=== PATIENT | male | born 1945 | race Caucasian/White ===

== ENCOUNTER 2016-07-29 17:55 | Observation (INO) | payer OTHER, MEDICARE ==
[~2016-07-29 17:55] MED LIST: ASPI81CH CHEW; CYCL1TAB29 PO; IBUP800T23 PO; LISI20TA PO; NORC5TAB PO; PROT40TA PO; SIMV40TA PO; ZETI10TA5 PO
[2016-07-29 17:59] VITALS: BP 156/70; PULSE 99; RESP 20; TEMP 98.4; O2SAT 95
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
[2016-07-29] MEDS ORDERED: KETOROLAC TROMETHAMINE 60 MG/2 ML (IM) VIAL IM ONE (18:30)
[2016-07-29] MEDS ORDERED: ORPHENADRINE INJ 60 MG/2 ML AMP IM ONE (18:30)
[2016-07-29] MEDS ORDERED: HYDROmorphone HCL PF 2 MG/ML VIAL IV PUSH ONE (19:30)
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
[2016-07-29 20:20] VITALS: BP 156/78; PULSE 95; RESP 14; O2SAT 95
[2016-07-29] MEDS ORDERED: ONDANSETRON HCL 4 MG/2 ML VIAL IVP PRN (21:15)
[2016-07-29] MEDS ORDERED: SODIUM CHLORIDE 0.9% FLUSH 5 ML FLUSH FLUSH PRN (21:15)
[2016-07-29] MEDS ORDERED: NALOXONE HCL 0.4 MG/ML AMP IV PRN (21:15)
[2016-07-29] MEDS ORDERED: ENALAPRILAT 2.5 MG/2 ML VIAL IV PUSH PRN (21:15)
[2016-07-29 21:55] VITALS: RESP 14; O2SAT 95
[2016-07-30] VITALS (8 sets, daily range): BP systolic 108–156; BP diastolic 64–80; PULSE 78–105; RESP 15–19; TEMP 97.1–98.2; O2SAT 93–97
[2016-07-30] MEDS: HYDROmorphone HCL PF 1 MG/ML VIAL IV PUSH PRN ×2 (01:01→08:47)
[2016-07-30 06:19] LABS: AUTOMATED NEUTROPHIL # 6.1 TH/MM3 (1.8-7.7); BASOPHIL % 0.4 % (0.0-2.0); EOSINOPHIL # 0.4 TH/MM3 (0-0.4); EOSINOPHIL % 3.8 % (0.0-4.0); HEMATOCRIT 35.7 % (39.0-51.0); HEMO FLAGS DIFF FINAL; LYMPH % 18.6 % (9.0-44.0); LYMPHOCYTE # 1.7 TH/MM3 (1.0-4.8); MEAN CELL VOLUME 90.3 FL (80.0-100.0); MEAN CORPUSCULAR HEMOGLOBIN 30.1 PG (27.0-34.0); MEAN CORPUSCULAR HGB CONC 33.3 % (32.0-36.0); MONO % 11.1 % (0.0-8.0); NEUT % 66.1 % (16.0-70.0); PLATELET COUNT 144 TH/MM3 (150-450); RED BLOOD COUNT 3.95 MIL/MM3 (4.50-5.90); RED CELL DISTRIBUTION WIDTH 14.8 % (11.6-17.2); WHITE BLOOD COUNT 9.2 TH/MM3 (4.0-11.0)
[2016-07-30 06:27] LABS: POTASSIUM 4.2 MEQ/L (3.5-5.1)
[2016-07-30] MEDS: SODIUM CHLORIDE 0.9% FLUSH 5 ML FLUSH FLUSH SCH ×2 (08:48→20:52)
[2016-07-30] MEDS: PANTOPRAZOLE SOD 40 MG DELAYED RELEASE TAB PO SCH (08:48)
[2016-07-30] MEDS: ENOXAPARIN SODIUM 40 MG/0.4 ML SYRINGE SQ SCH (08:48)
[2016-07-30] MEDS ORDERED: oxyCODONE/ACETAMINOPHEN 10 MG/325 MG TAB PO PRN (10:15)
[2016-07-30] MEDS ORDERED: oxyCODONE/ACETAMINOPHEN 5 MG/325 MG TAB PO PRN (10:15)
[2016-07-30] MEDS: DOCUSATE SODIUM 50 MG/SENNA 8.6 MG TAB PO SCH ×2 (11:07→20:51)
[2016-07-30] MEDS ORDERED: KETOROLAC TROMETHAMINE 60 MG/2 ML (IM) VIAL IM PRN (12:45)
[2016-07-30] MEDS ORDERED: NON-FORMULARY DRUG (Lisinopril-Hctz 1 TAB) PO SCH (12:45)
[2016-07-30] MEDS ORDERED: PANTOPRAZOLE SOD 40 MG DELAYED RELEASE TAB PO SCH (12:45)
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
[2016-07-30] MEDS: ACETAMINOPHEN 1000 MG/100 ML VIAL IV SCH ×2 (15:10→18:30)
[2016-07-30] MEDS: EZETIMIBE 10 MG TAB PO SCH (15:11)
[2016-07-30] MEDS: HYDROCHLOROTHIAZIDE 25 MG TAB PO SCH (15:11)
[2016-07-30] MEDS: CYCLOBENZAPRINE HCL 10 MG TAB PO SCH ×2 (15:12→18:30)
[2016-07-30] MEDS: LISINOPRIL 20 MG TAB PO SCH (15:12)
[2016-07-30] MEDS: ASPIRIN 81 MG CHEW TAB CHEW SCH (15:12)
[2016-07-30] MEDS: LIDOCAINE HCL 5% PATCH TD SCH (15:14)
[2016-07-30] MEDS: PRAVASTATIN SOD 80 MG TAB PO SCH (20:51)
[2016-07-30] MEDS: REMOVE OLD PATCH TD SCH (21:00)
[2016-07-31] VITALS: BP 123/50; PULSE 94; RESP 18; TEMP 97; O2SAT 94
[2016-07-31] MEDS: ACETAMINOPHEN 1000 MG/100 ML VIAL IV SCH ×3 (00:46→11:41)
[2016-07-31 08:00] VITALS: BP 153/74; PULSE 79; RESP 19; TEMP 97.4; O2SAT 96
[2016-07-31] MEDS: DOCUSATE SODIUM 50 MG/SENNA 8.6 MG TAB PO SCH ×2 (08:20→21:23)
[2016-07-31] MEDS: PANTOPRAZOLE SOD 40 MG DELAYED RELEASE TAB PO SCH (08:20)
[2016-07-31] MEDS: ASPIRIN 81 MG CHEW TAB CHEW SCH (08:20)
[2016-07-31] MEDS: CYCLOBENZAPRINE HCL 10 MG TAB PO SCH ×3 (08:21→17:04)
[2016-07-31] MEDS: LISINOPRIL 20 MG TAB PO SCH (08:21)
[2016-07-31] MEDS: HYDROCHLOROTHIAZIDE 25 MG TAB PO SCH (08:22)
[2016-07-31] MEDS: EZETIMIBE 10 MG TAB PO SCH (08:22)
[2016-07-31] MEDS: SODIUM CHLORIDE 0.9% FLUSH 5 ML FLUSH FLUSH SCH ×2 (08:23→21:23)
[2016-07-31] MEDS: ENOXAPARIN SODIUM 40 MG/0.4 ML SYRINGE SQ SCH (08:23)
[2016-07-31] MEDS: LIDOCAINE HCL 5% PATCH TD SCH (08:23)
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
[2016-07-31 12:00] VITALS: BP 139/90; PULSE 81; RESP 20; TEMP 97.7; O2SAT 95
[2016-07-31 16:00] VITALS: BP 125/75; PULSE 88; RESP 18; TEMP 97.5; O2SAT 93
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
[2016-07-31] MEDS: ACETAMINOPHEN 325 MG TAB PO SCH (17:04)
[2016-07-31 20:00] VITALS: BP 119/77; PULSE 72; RESP 20; TEMP 98.5; O2SAT 92
[2016-07-31] MEDS: REMOVE OLD PATCH TD SCH (21:00)
[2016-07-31] MEDS: PRAVASTATIN SOD 80 MG TAB PO SCH (21:23)
[2016-08-01] VITALS: BP 122/80; PULSE 76; RESP 20; TEMP 95.4; O2SAT 90
[2016-08-01] MEDS: ACETAMINOPHEN 325 MG TAB PO SCH ×4 (00:04→17:10)
[2016-08-01 04:00] VITALS: BP 128/76; PULSE 77; RESP 16; TEMP 98.2; O2SAT 93
[2016-08-01 09:06] VITALS: BP 129/84; PULSE 79; RESP 16; TEMP 96.7; O2SAT 95
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
[2016-08-01] MEDS: HYDROCHLOROTHIAZIDE 25 MG TAB PO SCH (09:55)
[2016-08-01] MEDS: LISINOPRIL 20 MG TAB PO SCH (09:55)
[2016-08-01] MEDS: ASPIRIN 81 MG CHEW TAB CHEW SCH (09:55)
[2016-08-01] MEDS: PANTOPRAZOLE SOD 40 MG DELAYED RELEASE TAB PO SCH (09:55)
[2016-08-01] MEDS: CYCLOBENZAPRINE HCL 10 MG TAB PO SCH ×3 (09:55→17:09)
[2016-08-01] MEDS: EZETIMIBE 10 MG TAB PO SCH (09:55)
[2016-08-01] MEDS: LIDOCAINE HCL 5% PATCH TD SCH (09:56)
[2016-08-01] MEDS: ENOXAPARIN SODIUM 40 MG/0.4 ML SYRINGE SQ SCH (09:56)
[2016-08-01] MEDS: DOCUSATE SODIUM 50 MG/SENNA 8.6 MG TAB PO SCH ×2 (09:56→19:48)
[2016-08-01] MEDS: POLYETHYLENE GLYCOL 17 GM PKG PO PRN (10:03)
[2016-08-01] MEDS: SODIUM CHLORIDE 0.9% FLUSH 5 ML FLUSH FLUSH SCH ×2 (10:07→19:50)
[2016-08-01 14:08] VITALS: BP 147/81; PULSE 98; RESP 18; TEMP 96.4; O2SAT 96
[2016-08-01] MEDS: KETOROLAC TROMETHAMINE 30 MG/ML (IVP) VIAL IV PUSH PRN (17:09)
[2016-08-01 17:21] VITALS: BP 132/74; PULSE 109; RESP 16; TEMP 96.8; O2SAT 94
[2016-08-01] MEDS: PRAVASTATIN SOD 80 MG TAB PO SCH (19:48)
[2016-08-01 20:00] VITALS: BP 132/81; PULSE 72; RESP 20; TEMP 96.3; O2SAT 94
[2016-08-01] MEDS: REMOVE OLD PATCH TD SCH (21:00)
[2016-08-02] VITALS: BP 112/69; PULSE 78; RESP 20; TEMP 96.1; O2SAT 96
[2016-08-02] MEDS: ACETAMINOPHEN 325 MG TAB PO SCH ×4 (00:13→18:43)
[2016-08-02 04:00] VITALS: BP 115/73; PULSE 77; RESP 20; TEMP 96.2; O2SAT 92
[2016-08-02 08:00] VITALS: BP 111/61; PULSE 85; RESP 16; TEMP 98; O2SAT 95
[2016-08-02] MEDS: ENOXAPARIN SODIUM 40 MG/0.4 ML SYRINGE SQ SCH (09:00)
[2016-08-02] MEDS: LIDOCAINE HCL 5% PATCH TD SCH (09:00)
[2016-08-02] MEDS: PANTOPRAZOLE SOD 40 MG DELAYED RELEASE TAB PO SCH (09:00)
[2016-08-02] MEDS: ASPIRIN 81 MG CHEW TAB CHEW SCH (09:00)
[2016-08-02] MEDS: SODIUM CHLORIDE 0.9% FLUSH 5 ML FLUSH FLUSH SCH ×2 (09:00→19:41)
[2016-08-02] MEDS: EZETIMIBE 10 MG TAB PO SCH (09:00)
[2016-08-02] MEDS: DOCUSATE SODIUM 50 MG/SENNA 8.6 MG TAB PO SCH ×2 (09:00→19:40)
[2016-08-02] MEDS: CYCLOBENZAPRINE HCL 10 MG TAB PO SCH ×3 (09:00→18:43)
[2016-08-02] MEDS: LISINOPRIL 20 MG TAB PO SCH (09:00)
[2016-08-02] MEDS: HYDROCHLOROTHIAZIDE 25 MG TAB PO SCH (09:00)
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
[2016-08-02 12:00] VITALS: BP 110/60; PULSE 82; RESP 18; TEMP 98; O2SAT 95
[2016-08-02] MEDS ORDERED: BISACODYL 10 MG SUPP RECTAL PRN (15:45)
[2016-08-02 16:00] VITALS: BP 118/65; PULSE 86; RESP 16; TEMP 98.1; O2SAT 95
[2016-08-02] MEDS: PRAVASTATIN SOD 80 MG TAB PO SCH (19:40)
[2016-08-02] MEDS: KETOROLAC TROMETHAMINE 30 MG/ML (IVP) VIAL IV PUSH PRN (19:46)
[2016-08-02] MEDS: REMOVE OLD PATCH TD SCH (20:29)
[2016-08-02 20:55] VITALS: BP 117/69; PULSE 102; RESP 20; TEMP 97.3; O2SAT 95
[2016-08-03 00:17] VITALS: BP 101/65; PULSE 81; RESP 18; TEMP 97.3; O2SAT 95
[2016-08-03] MEDS: ACETAMINOPHEN 325 MG TAB PO SCH ×4 (00:21→17:52)
[2016-08-03 08:00] VITALS: BP 114/78; PULSE 78; RESP 19; TEMP 97.2; O2SAT 96
[2016-08-03] MEDS: LIDOCAINE HCL 5% PATCH TD SCH (08:57)
[2016-08-03] MEDS: HYDROCHLOROTHIAZIDE 25 MG TAB PO SCH (08:57)
[2016-08-03] MEDS: DOCUSATE SODIUM 50 MG/SENNA 8.6 MG TAB PO SCH ×2 (08:58→20:37)
[2016-08-03] MEDS: PANTOPRAZOLE SOD 40 MG DELAYED RELEASE TAB PO SCH (08:58)
[2016-08-03] MEDS: LISINOPRIL 20 MG TAB PO SCH (08:58)
[2016-08-03] MEDS: ASPIRIN 81 MG CHEW TAB CHEW SCH (08:58)
[2016-08-03] MEDS: CYCLOBENZAPRINE HCL 10 MG TAB PO SCH ×3 (08:58→17:52)
[2016-08-03] MEDS: EZETIMIBE 10 MG TAB PO SCH (08:58)
[2016-08-03] MEDS: SODIUM CHLORIDE 0.9% FLUSH 5 ML FLUSH FLUSH SCH ×2 (08:59→20:37)
[2016-08-03] MEDS: ENOXAPARIN SODIUM 40 MG/0.4 ML SYRINGE SQ SCH (08:59)
[2016-08-03] MEDS: POLYETHYLENE GLYCOL 17 GM PKG PO PRN (09:05)
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
[2016-08-03] MEDS: SOD PHOSPHATE/SOD BIPHOSPHATE (ADULT) ENEMA 133ML PR PRN (10:00)
[2016-08-03 12:00] VITALS: BP 110/80; PULSE 75; RESP 18; TEMP 97; O2SAT 99
[2016-08-03] MEDS: KETOROLAC TROMETHAMINE 30 MG/ML (IVP) VIAL IV PUSH PRN (12:37)
[2016-08-03 16:00] VITALS: BP 102/69; PULSE 94; RESP 20; O2SAT 95
--- NOTE | 2016-08-03 17:57 | RADHPO ---
EXAM DATE/TIME: 08/03/2016 13:54 [facility] COMPARISON: CT LUMBAR SPINE W/O CONTRAST, July 29, 2016, 18:43. INDICATIONS : Back, and right leg pain. MEDICAL HISTORY : Arthritis. Hypertension. SURGICAL HISTORY : CABG Cholecystectomy. ENCOUNTER: Initial ACUITY: 1 day PAIN SCORE: 7/10 LOCATION: Low back TECHNIQUE: Multiplanar multisequence MRI of the lumbar spine was performed without contrast. FINDINGS: The most caudal appearing lumbar vertebra is numbered as L5. VERTEBRAE: Homogeneous signal. Normal alignment. Fracture right sacrum is appreciated CONUS: Normal level and configuration. T12-L1: The thecal sac has a normal diameter. No evidence of disc bulge or protrusion. The neural foramina are patent bilaterally. L1-L2: The thecal sac has a normal diameter. No evidence of disc bulge or protrusion. The neural f oramina are patent bilaterally. L2-L3: The thecal sac has a normal diameter. No evidence of disc bulge or protrusion. The neural f oramina are patent bilaterally. Mild facet arthritic changes with posterior ligamentous hypertrophy y ielding minimal localized spinal stenosis. L3-L4: This space is desiccated with no narrowing. There is minimal generalized disc protrusion facet arthritic changes and ligamentous hypertrophy with a mild localized spinal stenosis L4-L5: Facet arthritic changes appreciated with posterior ligamentous hypertrophy yielding mild localized sp inal stenosis. L5-S1: The thecal sac has a normal diameter. No evidence of disc bulge or protrusion. The neural f oramina are patent bilaterally. Facet arthritic changes. CONCLUSION: Multilevel facet arthritic changes with associated posterior ligamentous hypertrophy levels of the L34 L4-5 and minimally L2-L3 yielding mild localized spinal stenosis. No significant di sc protrusion. Fracture the right sacrum again appreciated as on prior CT scan Luke Beatty MD on August 03, 2016 at 17:49 Board Certified Radiologist. This report was verified electronically.
[2016-08-03 20:00] VITALS: BP 127/77; PULSE 83; RESP 18; TEMP 96.7; O2SAT 95
[2016-08-03] MEDS: PRAVASTATIN SOD 80 MG TAB PO SCH (20:37)
[2016-08-03] MEDS: REMOVE OLD PATCH TD SCH (20:37)
[2016-08-04] VITALS: BP 117/64; PULSE 85; RESP 18; TEMP 96.9; O2SAT 94
[2016-08-04] MEDS: ACETAMINOPHEN 325 MG TAB PO SCH ×5 (06:00→23:59)
[2016-08-04 08:59] VITALS: BP 148/71; PULSE 79; RESP 14; TEMP 97.8; O2SAT 97
[2016-08-04] MEDS: ENOXAPARIN SODIUM 40 MG/0.4 ML SYRINGE SQ SCH (09:00)
[2016-08-04] MEDS: LIDOCAINE HCL 5% PATCH TD SCH (09:00)
[2016-08-04] MEDS: DOCUSATE SODIUM 50 MG/SENNA 8.6 MG TAB PO SCH ×2 (09:00→21:06)
[2016-08-04] MEDS: SODIUM CHLORIDE 0.9% FLUSH 5 ML FLUSH FLUSH SCH ×2 (09:01→20:56)
[2016-08-04] MEDS: CYCLOBENZAPRINE HCL 10 MG TAB PO SCH ×3 (09:01→17:35)
[2016-08-04] MEDS: EZETIMIBE 10 MG TAB PO SCH (09:01)
[2016-08-04] MEDS: HYDROCHLOROTHIAZIDE 25 MG TAB PO SCH (09:01)
[2016-08-04] MEDS: LISINOPRIL 20 MG TAB PO SCH (09:01)
[2016-08-04] MEDS: PANTOPRAZOLE SOD 40 MG DELAYED RELEASE TAB PO SCH (09:01)
[2016-08-04] MEDS: ASPIRIN 81 MG CHEW TAB CHEW SCH (09:01)
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
[2016-08-04] MEDS ORDERED: BENZOCAINE 7.5% ORAL GEL 9.4 GM TUBE OROPHARYNG PRN (14:00)
[2016-08-04 15:00] VITALS: BP 121/65; PULSE 91; RESP 17; TEMP 98; O2SAT 95
[2016-08-04] MEDS: GABAPENTIN 100 MG CAP PO SCH (17:35)
[2016-08-04 18:04] VITALS: BP 115/64; PULSE 87; RESP 18; TEMP 97.5; O2SAT 95
[2016-08-04 20:00] VITALS: BP 115/58; PULSE 89; RESP 20; TEMP 97.1; O2SAT 93
[2016-08-04] MEDS: PRAVASTATIN SOD 80 MG TAB PO SCH (20:55)
[2016-08-04] MEDS: REMOVE OLD PATCH TD SCH (21:00)
[2016-08-04] MEDS: KETOROLAC TROMETHAMINE 30 MG/ML (IVP) VIAL IV PUSH PRN (21:06)
[2016-08-05] VITALS: BP 99/66; PULSE 78; RESP 20; TEMP 96; O2SAT 94
[2016-08-05 04:47] VITALS: BP 109/69; PULSE 75; RESP 18; TEMP 96.8; O2SAT 92
[2016-08-05] MEDS: ACETAMINOPHEN 325 MG TAB PO SCH ×3 (04:51→17:25)
[2016-08-05] MEDS: DOCUSATE SODIUM 50 MG/SENNA 8.6 MG TAB PO SCH ×2 (08:51→21:00)
[2016-08-05] MEDS: GABAPENTIN 100 MG CAP PO SCH ×3 (08:51→17:24)
[2016-08-05] MEDS: CYCLOBENZAPRINE HCL 10 MG TAB PO SCH ×3 (08:52→17:23)
[2016-08-05] MEDS: ASPIRIN 81 MG CHEW TAB CHEW SCH (08:52)
[2016-08-05] MEDS: LISINOPRIL 20 MG TAB PO SCH (08:52)
[2016-08-05] MEDS: PANTOPRAZOLE SOD 40 MG DELAYED RELEASE TAB PO SCH (08:52)
[2016-08-05] MEDS: EZETIMIBE 10 MG TAB PO SCH (08:52)
[2016-08-05] MEDS: HYDROCHLOROTHIAZIDE 25 MG TAB PO SCH (08:52)
[2016-08-05] MEDS: ENOXAPARIN SODIUM 40 MG/0.4 ML SYRINGE SQ SCH (08:53)
[2016-08-05] MEDS: LIDOCAINE HCL 5% PATCH TD SCH ×2 (08:54→09:00)
[2016-08-05] MEDS: SODIUM CHLORIDE 0.9% FLUSH 5 ML FLUSH FLUSH SCH ×2 (09:01→22:01)
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
[2016-08-05 12:00] VITALS: BP 125/69; PULSE 67; RESP 18; TEMP 98.1; O2SAT 95
[2016-08-05 16:00] VITALS: BP 114/66; PULSE 86; RESP 16; TEMP 98.1; O2SAT 97
[2016-08-05 20:00] VITALS: BP 118/88; PULSE 92; RESP 20; TEMP 97.9; O2SAT 94
[2016-08-05] MEDS: REMOVE OLD PATCH TD SCH (21:00)
[2016-08-05] MEDS: PRAVASTATIN SOD 80 MG TAB PO SCH (22:01)
[2016-08-06] VITALS (7 sets, daily range): BP systolic 99–120; BP diastolic 67–80; PULSE 81–92; RESP 16–20; TEMP 96–98.1; O2SAT 90–98
[2016-08-06] MEDS: ACETAMINOPHEN 325 MG TAB PO SCH ×5 (00:53→23:23)
[2016-08-06] MEDS: ASPIRIN 81 MG CHEW TAB CHEW SCH (08:55)
[2016-08-06] MEDS: GABAPENTIN 100 MG CAP PO SCH ×3 (08:55→17:12)
[2016-08-06] MEDS: ENOXAPARIN SODIUM 40 MG/0.4 ML SYRINGE SQ SCH (08:55)
[2016-08-06] MEDS: PANTOPRAZOLE SOD 40 MG DELAYED RELEASE TAB PO SCH (08:56)
[2016-08-06] MEDS: LISINOPRIL 20 MG TAB PO SCH (08:56)
[2016-08-06] MEDS: DOCUSATE SODIUM 50 MG/SENNA 8.6 MG TAB PO SCH ×2 (08:56→22:42)
[2016-08-06] MEDS: EZETIMIBE 10 MG TAB PO SCH (08:56)
[2016-08-06] MEDS: CYCLOBENZAPRINE HCL 10 MG TAB PO SCH ×3 (08:56→17:12)
[2016-08-06] MEDS: HYDROCHLOROTHIAZIDE 25 MG TAB PO SCH (08:56)
[2016-08-06] MEDS: LIDOCAINE HCL 5% PATCH TD SCH (08:57)
[2016-08-06] MEDS: POLYETHYLENE GLYCOL 17 GM PKG PO PRN (08:58)
[2016-08-06] MEDS: SODIUM CHLORIDE 0.9% FLUSH 5 ML FLUSH FLUSH SCH ×2 (09:00→22:03)
[2016-08-06] MEDS: SOD PHOSPHATE/SOD BIPHOSPHATE (ADULT) ENEMA 133ML PR PRN (10:03)
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
[2016-08-06] MEDS: REMOVE OLD PATCH TD SCH (21:00)
[2016-08-06] MEDS: PRAVASTATIN SOD 80 MG TAB PO SCH (22:03)
[2016-08-07] VITALS: BP 95/53; PULSE 87; RESP 18; TEMP 97.7; O2SAT 87
[2016-08-07] MEDS: ACETAMINOPHEN 325 MG TAB PO SCH ×3 (05:08→17:06)
[2016-08-07 05:24] VITALS: BP 123/72; PULSE 81; RESP 18; TEMP 97; O2SAT 94
[2016-08-07 08:00] VITALS: BP 114/76; PULSE 120; RESP 22; TEMP 96.2
[2016-08-07] MEDS: DOCUSATE SODIUM 50 MG/SENNA 8.6 MG TAB PO SCH (08:18)
[2016-08-07] MEDS: ASPIRIN 81 MG CHEW TAB CHEW SCH (08:19)
[2016-08-07] MEDS: HYDROCHLOROTHIAZIDE 25 MG TAB PO SCH (08:19)
[2016-08-07] MEDS: GABAPENTIN 100 MG CAP PO SCH ×3 (08:19→17:05)
[2016-08-07] MEDS: CYCLOBENZAPRINE HCL 10 MG TAB PO SCH ×3 (08:19→17:05)
[2016-08-07] MEDS: SODIUM CHLORIDE 0.9% FLUSH 5 ML FLUSH FLUSH SCH ×2 (08:19→21:59)
[2016-08-07] MEDS: LISINOPRIL 20 MG TAB PO SCH (08:19)
[2016-08-07] MEDS: PANTOPRAZOLE SOD 40 MG DELAYED RELEASE TAB PO SCH (08:19)
[2016-08-07] MEDS: EZETIMIBE 10 MG TAB PO SCH (08:19)
[2016-08-07] MEDS: ENOXAPARIN SODIUM 40 MG/0.4 ML SYRINGE SQ SCH (08:20)
[2016-08-07] MEDS: LIDOCAINE HCL 5% PATCH TD SCH (08:20)
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
[2016-08-07 12:00] VITALS: BP 109/62; PULSE 91; RESP 20; TEMP 98.1; O2SAT 96
[2016-08-07 16:00] VITALS: BP 121/71; PULSE 85; RESP 20; TEMP 96.8; O2SAT 97
[2016-08-07 20:00] VITALS: BP 117/66; PULSE 95; RESP 18; TEMP 97.2; O2SAT 93
[2016-08-07] MEDS: REMOVE OLD PATCH TD SCH (21:00)
[2016-08-07] MEDS: PRAVASTATIN SOD 80 MG TAB PO SCH (21:51)
[2016-08-08] VITALS: BP 103/55; PULSE 85; RESP 18; TEMP 96.5; O2SAT 93
[2016-08-08] MEDS: ACETAMINOPHEN 325 MG TAB PO SCH ×3 (04:30→12:43)
[2016-08-08] MEDS: DOCUSATE SODIUM 50 MG/SENNA 8.6 MG TAB PO SCH ×2 (04:32→08:13)
[2016-08-08] MEDS: GABAPENTIN 100 MG CAP PO SCH ×2 (08:06→12:42)
[2016-08-08] MEDS: LISINOPRIL 20 MG TAB PO SCH (08:06)
[2016-08-08] MEDS: CYCLOBENZAPRINE HCL 10 MG TAB PO SCH ×2 (08:06→12:43)
[2016-08-08] MEDS: ENOXAPARIN SODIUM 40 MG/0.4 ML SYRINGE SQ SCH (08:06)
[2016-08-08] MEDS: PANTOPRAZOLE SOD 40 MG DELAYED RELEASE TAB PO SCH (08:06)
[2016-08-08] MEDS: ASPIRIN 81 MG CHEW TAB CHEW SCH (08:06)
[2016-08-08] MEDS: EZETIMIBE 10 MG TAB PO SCH (08:06)
[2016-08-08] MEDS: LIDOCAINE HCL 5% PATCH TD SCH (08:07)
[2016-08-08] MEDS: HYDROCHLOROTHIAZIDE 25 MG TAB PO SCH (08:13)
[2016-08-08] MEDS: SODIUM CHLORIDE 0.9% FLUSH 5 ML FLUSH FLUSH SCH (08:13)
[2016-08-08 09:11] VITALS: BP 98/71; PULSE 101; RESP 15; TEMP 97.5; O2SAT 95
[2016-08-08] MEDS ORDERED: GABA100C4 PO (10:23)
[2016-08-08] MEDS ORDERED: POLY17S PO (10:23)
[2016-08-08] MEDS ORDERED: NORC5TAB PO (10:23)
--- NOTE | 2016-08-08 10:23 | HHI.DCPOC ---
Discharge Care Plan Diagnosis: (1) Sacral fracture, closed Goals to Promote Your Health * To prevent worsening of your condition and complications * To maintain your health at the optimal level Directions to Meet Your Goals Take your medications as prescribed Follow your dietary instruction Follow activity as directed Keep your appointments as scheduled Take your immunizations and boosters as scheduled If your symptoms worsen call your PCP, if no PCP go to Urgent Care Center or Emergency Room Smoking is Dangerous to Your Health. Avoid second hand smoke Call the 24-hour hour crisis hotline for domestic abuse at Janeth Rubio MD Aug 08, 2016 10:23
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
== END 2016-08-08 13:33 ==
LOC: PHEFT 17:55 → PHEDA 21:08 → PH3B 07-30 00:12
PROVIDERS: ADMIT Hospitalist; ATTEND Hospitalist
DX: S32.10XD Unspecified fracture of sacrum, subsequent encounter for fracture with routine healing (principal); M48.06 Spinal stenosis, lumbar region; G57.10 Meralgia paresthetica, unspecified lower limb; I10 Essential (primary) hypertension; I25.10 Atherosclerotic heart disease of native coronary artery without angina pectoris; K59.00 Constipation, unspecified; K12.0 Recurrent oral aphthae; K21.9 Gastro-esophageal reflux disease without esophagitis; E78.5 Hyperlipidemia, unspecified; E78.00 Pure hypercholesterolemia, unspecified; M19.90 Unspecified osteoarthritis, unspecified site; Z95.1 Presence of aortocoronary bypass graft; Z87.891 Personal history of nicotine dependence; Z87.442 Personal history of urinary calculi; Z87.11 Personal history of peptic ulcer disease; V89.2XXD Person injured in unspecified motor-vehicle accident, traffic, subsequent encounter
CPT/HCPCS: 72131; 72148; 73700; 80048; 85025; 96372; 96374; 97110; 97116; 97163; 97530; 99285; G0378; G8987; G8988; J0131; J1170; J1650; J1885; J2360